=== PATIENT | male | born 1980 | race Two or more races ===

== ENCOUNTER 2023-12-22 08:02 | Emergency (ER) | payer SELFPAY ==
[~2023-12-22] VITALS: Ht 185.4 cm; Wt 122.5 kg
[~2023-12-22 08:02] MED LIST: ALBU90OI INH; AMOCLA875 PO; AMOX500 PO; ANXIETY MED; BP MED; BYSTOLIC PO; CEPH500 PO; CITA20 PO; CODACE30 PO; COLC.6 PO; CRUTCH4 USE; CYCL10 PO; DOXY100 PO; Dazidox10 MG PO; FEBU40TA PO; FLUT.05NI; GEMF600 PO; HYDACE5 PO; HYDGUAL120 PO; HYDMOR2 PO; INSDET100; LEVSOD125 PO; LEVSOD175 PO; LEVSOD200; LEVSOD200 PO; LEVSOD25; LEVSOD25 PO; LEVSOD75 PO; META800 PO; METF500 PO; NAPR500 PO; Norco 5-325 Ta1 EACH PO; OXYACE5T PO; PROM25 PO; Prednisone20 MG PO; RAMI2.5 PO; RXCEPH500 PO; RXCYCL10 PO; RXHYD5325 PO; RXOXYACE PO; RXPROM25 PO; RXTRAM50 PO; TRAM50 PO
[2023-12-22 10:00] LABS: BASOPHILS ABSOLUTE AUTO 0.07 K/mm3 (0.00-0.23); BASOPHILS PERCENT AUTO 0 % (0-2); EOSINOPHILS ABSOLUTE AUTO 0.04 K/mm3 (0.00-0.68); EOSINOPHILS PERCENT AUTO 0 % (0-6); Hematocrit 45.5 % (37.0-53.0); IMMATURE GRAN ABSOLUTE AUTO 0.29 K/mm3 (0.00-0.10); IMMATURE GRAN PERCENT AUTO 1 % (0-1); LYMPHOCYTES PERCENT AUTO 5 % (21-46); MONOCYTES ABSOLUTE AUTO 2.68 K/mm3 (0.16-1.47); MONOCYTES PERCENT AUTO 12 % (4-13); Mean Corpuscular HGB 27.4 pg (26.0-34.0); Mean Corpuscular Volume 83 fL (80-100); Mean Platelet Volume 9.9 fL (9.1-12.4); NEUTROPHILS ABSOLUTE AUTO 19.07 K/mm3 (1.96-9.15); NEUTROPHILS PERCENT AUTO 82 % (41-73); Platelet Count 377 K/mm3 (150-400); RDW Coefficient Variation 15.1 % (11.7-14.2); RDW Standard Deviation 45.6 fL (35.1-46.3); Red Blood Cell Count 5.48 M/mm3 (4.30-5.90); White Blood Cell Count 23.35 K/mm3 (4.00-11.30)
[2023-12-22 10:13] LABS: Albumin, Blood 3.4 g/dL (3.4-5.0); Albumin/Globulin Ratio 0.7 (0.8-1.8); Bilirubin, Total 1.6 mg/dL (0.1-1.0); Bun/Creatinine Ratio 9.5 (12.0-20.0); Calcium, Blood 9.3 mg/dL (8.5-10.1); Creatinine, Blood 1.16 mg/dL (0.60-1.20); Globulin, Blood 4.7 g/dL (2.2-4.0); Potassium, Blood 3.4 mmol/L (3.5-5.5); Total Protein, Blood 8.1 g/dL (6.4-8.2)
[2023-12-22 12:45] VITALS: BP 139/93
[2023-12-22] MEDS ORDERED: PredniSONE 20 MG Tab PO ONE (12:45)
[2023-12-22] MEDS ORDERED: OxyCODONE 10/Acetamin 325 TABLET PO ONE (12:45)
[2023-12-22] MEDS ORDERED: Ketorolac Tromethamine 30mg Vial IV ONE (12:45)
[2023-12-22] MEDS ORDERED: METPRE4DP PO (12:49)
[2023-12-22] MEDS ORDERED: OXYC5 PO (12:49)
== END 2023-12-22 13:01 | disposition home or self-care (01) ==
LOC: ER 08:02
PROVIDERS: Physician Assistant
DX: M13.0 Polyarthritis, unspecified (principal); Z79.4 Long term (current) use of insulin; Z79.52 Long term (current) use of systemic steroids; Z79.890 Hormone replacement therapy
CPT/HCPCS: 80053; 83735; 85025; 96374; 99284-25; A9270; J1885; J7512

== ENCOUNTER → 2024-04-08 | Outpatient (CLI) | payer OTHER ==
[~2024-04-08] MED LIST changes: +METPRE4DP PO; +OXYC5 PO
[2024-04-08 14:31] LABS: BASOPHILS ABSOLUTE AUTO 0.04 K/mm3 (0.00-0.23); BASOPHILS PERCENT AUTO 1 % (0-2); EOSINOPHILS ABSOLUTE AUTO 0.09 K/mm3 (0.00-0.68); EOSINOPHILS PERCENT AUTO 1 % (0-6); Hematocrit 44.8 % (37.0-53.0); Hemoglobin 15.3 g/dL (13.5-17.5); IMMATURE GRAN ABSOLUTE AUTO 0.03 K/mm3 (0.00-0.10); IMMATURE GRAN PERCENT AUTO 0 % (0-1); LYMPHOCYTES ABSOLUTE AUTO 1.63 K/mm3 (0.84-5.20); LYMPHOCYTES PERCENT AUTO 22 % (21-46); MONOCYTES ABSOLUTE AUTO 0.89 K/mm3 (0.16-1.47); MONOCYTES PERCENT AUTO 12 % (4-13); Mean Corpuscular HGB 29.1 pg (26.0-34.0); Mean Corpuscular HGB Conc 34.2 g/dL (31.5-36.5); Mean Corpuscular Volume 85 fL (80-100); Mean Platelet Volume 10.5 fL (9.1-12.4); NEUTROPHILS ABSOLUTE AUTO 4.91 K/mm3 (1.96-9.15); NEUTROPHILS PERCENT AUTO 65 % (41-73); Platelet Count 243 K/mm3 (150-400); RDW Standard Deviation 47.1 fL (35.1-46.3); Red Blood Cell Count 5.25 M/mm3 (4.30-5.90); White Blood Cell Count 7.59 K/mm3 (4.00-11.30)
== END ==
LOC: LAB 14:26 → LAB SHORT 14:26
PROVIDERS: Physician Assistant
DX: K92.2 Gastrointestinal hemorrhage, unspecified (principal)
CPT/HCPCS: 85025

== ENCOUNTER 2024-04-17 10:50 | Emergency (ER) | payer OTHER ==
[~2024-04-17] VITALS: Ht 185.4 cm; Wt 114.3 kg
[2024-04-17 11:06] VITALS: BP 140/105
[2024-04-17] MEDS ORDERED: AMOCLA875 PO (11:09)
[2024-04-17] MEDS ORDERED: Ibuprofen 600 MG Tab PO ONE (11:10)
[2024-04-17] MEDS ORDERED: Amoxicillin/Clavulanate K 875 MG Tab PO ONE (11:10)
[2024-04-17] MEDS ORDERED: Norco 5-325 Ta1 EACH PO (11:11)
== END 2024-04-17 11:16 | disposition home or self-care (01) ==
LOC: ER 10:50
DX: K04.7 Periapical abscess without sinus (principal); Z59.89 Other problems related to housing and economic circumstances; I10 Essential (primary) hypertension; Z79.890 Hormone replacement therapy; Z79.4 Long term (current) use of insulin; Z79.52 Long term (current) use of systemic steroids; Z79.891 Long term (current) use of opiate analgesic; Z79.2 Long term (current) use of antibiotics
CPT/HCPCS: 99282; A9270

== ENCOUNTER 2024-04-18 07:19 | Emergency (ER) | payer OTHER ==
[~2024-04-18] VITALS: Ht 185.4 cm; Wt 114.3 kg
[2024-04-18] MEDS ORDERED: Benzocaine Oral Spray 0.5ML UD MT ONE (07:30)
[2024-04-18] MEDS ORDERED: Dexamethasone Sod Phos 10 MG/ML 1ML VIAL PO ONE (07:30)
[2024-04-18 08:05] VITALS: BP 151/118
== END 2024-04-18 08:06 | disposition home or self-care (01) ==
LOC: ER 07:19
DX: K04.7 Periapical abscess without sinus (principal); I10 Essential (primary) hypertension; E89.0 Postprocedural hypothyroidism; Z79.890 Hormone replacement therapy
CPT/HCPCS: 10160; 99283-25; A9270; J1100

== ENCOUNTER 2024-04-20 18:01 | Emergency (ER) | payer OTHER ==
[~2024-04-20] VITALS: Ht 185.4 cm; Wt 115.7 kg
[2024-04-20 18:09] VITALS: BP 162/102
[2024-04-20] MEDS ORDERED: Ketorolac Tromethamine 15mg Vial IM ONE (19:20)
[2024-04-20] MEDS ORDERED: RX Prepack 6 Tabs Oxycodone 5mg UD ONE (19:20)
== END 2024-04-20 19:40 | disposition home or self-care (01) ==
LOC: ER 18:01
DX: K04.7 Periapical abscess without sinus (principal); I10 Essential (primary) hypertension; Z79.890 Hormone replacement therapy; Z79.2 Long term (current) use of antibiotics
CPT/HCPCS: 10160; 96372; 99282-25; A9270; J1885

== ENCOUNTER → 2024-05-25 | Outpatient (CLI) | payer OTHER ==
[2024-05-28 12:32] LABS: Adenovirus F 40/41 Not Detected (NOT DETECT); Astrovirus Not Detected (NOT DETECT); Campylobacter Sp Not Detected (NOT DETECT); Cryptosporidium Not Detected (NOT DETECT); Cyclospora Cayetanensis Not Detected (NOT DETECT); E. Coli O157 Not Detected (NOT DETECT); Entamoeba Histolytica Not Detected (NOT DETECT); Enteroaggregative E. coli-EAEC Not Detected (NOT DETECT); Enteropathogenic E. coli-EPEC Not Detected (NOT DETECT); Enterotoxigenic E. coli-ETEC Not Detected (NOT DETECT); Giardia Lamblia Not Detected (NOT DETECT); Norovirus GI/GII Not Detected (NOT DETECT); Plesiomonas Shigelloides Not Detected (NOT DETECT); Rotavirus A Not Detected (NOT DETECT); Salmonella Sp Not Detected (NOT DETECT); Sapovirus Not Detected (NOT DETECT); Shiga Toxin-prod E. coli-STEC Not Detected (NOT DETECT); Shigella/Enteroin E. coli-EIEC Not Detected (NOT DETECT); Vibrio Cholerae Not Detected (NOT DETECT); Vibrio Sp Not Detected (NOT DETECT); Yersinia Enterocolitica Not Detected (NOT DETECT)
== END ==
LOC: LAB SHORT 16:30 → LAB 16:30
DX: E03.1 Congenital hypothyroidism without goiter (principal); R19.7 Diarrhea, unspecified
CPT/HCPCS: 87507

== ENCOUNTER → 2024-05-26 | Outpatient (CLI) | payer OTHER ==
[2024-05-28 14:53] LABS: Stool Occult Bld Immuno 1 Negative (NEGATIVE)
[2024-05-31 10:20] LABS: CALPROTECTIN,FECAL 44 ug/g (<=49)
[2024-05-31 20:33] LABS: PANCREATIC ELASTASE,FECAL >800 ug/g (>=100)
== END | disposition home or self-care (01) ==
LOC: LAB SHORT 19:30 → LAB 19:30
DX: K90.9 Intestinal malabsorption, unspecified (principal); E03.1 Congenital hypothyroidism without goiter
CPT/HCPCS: 82653; 83993; 89055; G0328

== ENCOUNTER 2024-06-25 12:50 | Emergency (ER) | payer OTHER ==
[~2024-06-25] VITALS: Ht 185.4 cm; Wt 124.7 kg
[2024-06-25 13:49] LABS: BASOPHILS ABSOLUTE AUTO 0.09 K/mm3 (0.00-0.23); BASOPHILS PERCENT AUTO 1 % (0-2); EOSINOPHILS ABSOLUTE AUTO 0.21 K/mm3 (0.00-0.68); EOSINOPHILS PERCENT AUTO 2 % (0-6); Hematocrit 46.7 % (37.0-53.0); Hemoglobin 15.7 g/dL (13.5-17.5); IMMATURE GRAN ABSOLUTE AUTO 0.43 K/mm3 (0.00-0.10); IMMATURE GRAN PERCENT AUTO 5 % (0-1); LYMPHOCYTES ABSOLUTE AUTO 2.15 K/mm3 (0.84-5.20); LYMPHOCYTES PERCENT AUTO 25 % (21-46); MONOCYTES PERCENT AUTO 10 % (4-13); Mean Corpuscular HGB 29.5 pg (26.0-34.0); Mean Corpuscular HGB Conc 33.6 g/dL (31.5-36.5); Mean Corpuscular Volume 88 fL (80-100); Mean Platelet Volume 9.6 fL (9.1-12.4); NEUTROPHILS ABSOLUTE AUTO 4.85 K/mm3 (1.96-9.15); NEUTROPHILS PERCENT AUTO 56 % (41-73); Platelet Count 244 K/mm3 (150-400); RDW Coefficient Variation 14.4 % (11.7-14.2); RDW Standard Deviation 45.7 fL (35.1-46.3); Red Blood Cell Count 5.33 M/mm3 (4.30-5.90); White Blood Cell Count 8.63 K/mm3 (4.00-11.30)
[2024-06-25 14:22] LABS: Albumin, Blood 3.8 g/dL (3.4-5.0); Albumin/Globulin Ratio 1.1 (0.8-1.8); Bilirubin, Total 0.8 mg/dL (0.1-1.0); Bun/Creatinine Ratio 24.6 (12.0-20.0); Calcium, Blood 9.4 mg/dL (8.5-10.1); Creatinine, Blood 0.97 mg/dL (0.60-1.20); Globulin, Blood 3.6 g/dL (2.2-4.0); Total Protein, Blood 7.4 g/dL (6.4-8.2)
[2024-06-25] MEDS ORDERED: DiphenhydrAMINE HCl 50 MG/ML 1ML Vial IV ONE (14:40)
[2024-06-25] MEDS ORDERED: Prochlorperazine Edisylate 10 mg Vial IV ONE (14:40)
[2024-06-25 15:00] VITALS: BP 127/83
[2024-06-25] MEDS ORDERED: OxyCODONE HCL 5 MG TAB PO ONE (16:45)
[2024-06-25] MEDS ORDERED: Acetaminophen 500 MG Tab PO ONE (16:45)
[2024-06-25] MEDS ORDERED: Gabapentin 300 MG Cap PO ONE (16:45)
[2024-06-25] MEDS ORDERED: Ketorolac Tromethamine 15mg Vial IV ONE (16:45)
== END 2024-06-25 17:36 | disposition home or self-care (01) ==
LOC: ER 12:50
PROVIDERS: Student in an Organized Health Care Education/Training Program
DX: H57.12 Ocular pain, left eye (principal); R51.9 Headache, unspecified; M54.2 Cervicalgia; H53.8 Other visual disturbances; I10 Essential (primary) hypertension; E88.810 Metabolic syndrome; D68.00 Von Willebrand disease, unspecified; E89.0 Postprocedural hypothyroidism; Z79.890 Hormone replacement therapy
CPT/HCPCS: 70450; 70496; 70498; 71045; 80053; 84484; 85025; 85651; 93005; 93010; 96374-59; 96375-59; 99284-25; A9270; J0780; J1200; J1885; Q9967

== ENCOUNTER → 2024-12-26 | Outpatient (CLI) | payer OTHER ==
[2024-12-26 11:33] LABS: BASOPHILS ABSOLUTE AUTO 0.06 K/mm3 (0.00-0.23); BASOPHILS PERCENT AUTO 1 % (0-2); EOSINOPHILS ABSOLUTE AUTO 0.05 K/mm3 (0.00-0.68); EOSINOPHILS PERCENT AUTO 1 % (0-6); Hematocrit 53.4 % (37.0-53.0); Hemoglobin 17.9 g/dL (13.5-17.5); IMMATURE GRAN ABSOLUTE AUTO 0.06 K/mm3 (0.00-0.10); IMMATURE GRAN PERCENT AUTO 1 % (0-1); LYMPHOCYTES ABSOLUTE AUTO 1.74 K/mm3 (0.84-5.20); LYMPHOCYTES PERCENT AUTO 22 % (21-46); MONOCYTES ABSOLUTE AUTO 0.57 K/mm3 (0.16-1.47); MONOCYTES PERCENT AUTO 7 % (4-13); Mean Corpuscular HGB Conc 33.5 g/dL (31.5-36.5); Mean Corpuscular Volume 85 fL (80-100); NEUTROPHILS ABSOLUTE AUTO 5.47 K/mm3 (1.96-9.15); NEUTROPHILS PERCENT AUTO 69 % (41-73); NRBC ABSOLUTE 0.00 K/mm3 (0.00-0.02); NRBC Auto 0.0 /100 WBC (0.0-0.2); Platelet Count 267 K/mm3 (150-400); RDW Coefficient Variation 16.3 % (11.7-14.2); RDW Standard Deviation 48.6 fL (35.1-46.3)
[2024-12-26 11:43] LABS: Alanine Aminotransfer (ALT/SGP 45.0 U/L (12-78); Albumin, Blood 4.3 g/dL (3.4-5.0); Albumin/Globulin Ratio 1.2 (0.8-1.8); Anion Gap 12.0 mmol/L (3-11); Aspartate Aminotrans (AST/SGOT 30.0 U/L (12-37); Bilirubin, Total 3.6 mg/dL (0.1-1.0); Blood Urea Nitrogen 8.0 mg/dL (8-24); CO2, Blood 31.0 mmol/L (21-32); Calcium, Blood 9.4 mg/dL (8.5-10.1); Chloride, Blood 104.0 mmol/L (98-108); Creatinine, Blood 1.45 mg/dL (0.60-1.20); Globulin, Blood 3.7 g/dL (2.2-4.0); Glucose, Blood 96.0 mg/dL (70-99); Potassium, Blood 3.2 mmol/L (3.5-5.5); Sodium, Blood 144.0 mmol/L (136-145); Total Protein, Blood 8.0 g/dL (6.4-8.2)
== END ==
LOC: LAB SHORT 11:29 → LAB 11:29
DX: R11.10 Vomiting, unspecified (principal)
CPT/HCPCS: 80053; 83690; 85025